=== PATIENT | female | born 1995 | race Caucasian/White ===

== ENCOUNTER 2023-07-09 05:28 | Observation (INO) ==
--- NOTE | 2023-06-28 11:28 | Anesthesiology Consultation ---
Date of Service June 28, 2023 Assessment & Plan (1) Encounter for pre-operative examination: - Check test AM DOS - Infectious disease screening: Per assessment on 06/28/23: No known infectious disease contacts or current infectious disease symptoms. No noted recent Covid positive test result. Chart Review Chart Review: Acceptable Risk for Surgery and Patient NOT seen in Pre Admission Testing History Surgery Operation Date: 07/09/23 07:15 Proposed Procedures p Lefort I wtih Graft, Sagittal Osteotomy, Surgical Splint - Rio Dunn DMD Height/Weight Height: 5 ft 4 in Weight: 47.627 kg Allergies Allergy/AdvReac Type Severity Reaction Status Date / Time amoxicillin Allergy Unknown hives Verified 06/28/23 10:50 Medications Home Medications Medication Instructions Recorded Confirmed Last Taken dextroamphetamine-amphetamine ER 30 mg PO QAM 11/26/20 06/28/23 07/16/21 25 mg 24hr capsule,extend release (Adderall XR) cetirizine 10 mg capsule (Zyrtec) 10 mg PO DAILY PRN ALLERGIES 07/12/21 06/28/23 07/15/21 levonorgestrel 14 mcg/24 hrs (3 14 mcg intrauterine UD 03/15/22 06/28/23 Unknown yrs) 13.5 mg intrauterine device (Trinh) citalopram 10 mg tablet 10 mg PO QAM 06/28/23 06/28/23 Unknown Past Medical History Medical History ADHD Anxiety History of COVID-19 2021, mild symptoms IUD (intrauterine device) in place Trinh 02/2022 Premenstrual dysphoric disorder Seasonal allergies Past Family History Family History Grandfather (Maternal) No problems noted. Grandfather (Paternal) Diabetes Colorectal cancer Grandmother (Maternal) Heart disease Father Hypertension Denies family history of Ovarian cancer Breast cancer Uterine cancer Past Surgical History Surgical History History of endoscopy History of wisdom tooth extraction (~2012) Hx of oral surgery (07/18/21) Lefort 1 Two Segments - Rio Dunn DMD 07/18/2021 Social History Smoking Status: Never smoker Do You Dip or Chew Tobacco: No Hx Alcohol Use: Yes Alcohol type: wine alcohol intake frequency: a few times a week Hx Substance Use: No substance use type: does not use
[2023-07-09] MEDS: LR 60ML/HR IV SCH (06:00)
[2023-07-09] MEDS: LR 15ML/HR IV SCH (06:00)
[2023-07-09] MEDS ORDERED: ePHEDrine sulfate 50 MG/ML AMP IV PRN (06:34)
[2023-07-09] MEDS ORDERED: HYDROmorphone INJ 1 MG/ML SYRINGE IV PRN (06:34)
[2023-07-09] MEDS ORDERED: ONDANSETRON INJ 2 MG/ML 2 ML VIAL IV PRN (06:34)
[2023-07-09] MEDS ORDERED: LIDOCAINE 2% JELLY 5 ML TUBE EXT ONE (06:34)
[2023-07-09] MEDS ORDERED: fentaNYL citrate PF 100 MCG/2 ML VIAL IV PRN (06:34)
[2023-07-09] MEDS ORDERED: ATROPINE SULFATE 0.1 MG/ML 10ML SYR IV PRN (06:34)
[2023-07-09] MEDS ORDERED: PROMETHAZINE HCL 6.25 MG in SODIUM CHLORIDE 0.9% 50 ML IV PRN (06:34)
[2023-07-09] MEDS ORDERED: SCOPOLAMINE 1 MG TDSY TD ONE (06:37)
[2023-07-09] MEDS: SCOPOLAMINE 1 MG TDSY TD ONE (06:39)
--- NOTE | 2023-07-09 06:46 | History & Physical Bridge Note ---
Date of Service July 09, 2023 History & Physical Bridge Note I have examined the patient, reviewed the History & Physical and in the interval since the performance of the History & Physical I have noted the following changes of clinical significance: no changes noted OK for the planned procedure All questions fully answered
[2023-07-09] MEDS ORDERED: DEXAMETHASONE SOD INJ 4 MG/ML VIAL ONE (06:50)
[2023-07-09] MEDS ORDERED: MIDAZOLAM HCL 1 MG/ML 2ML VIAL ONE (06:50)
[2023-07-09] MEDS ORDERED: PROPOFOL IV EMULSION 10 MG/ML 20 ML VIAL IV ONE (06:50)
[2023-07-09] MEDS ORDERED: ROCURONIUM BROMIDE 10 MG/ML 5 ML VIAL IV ONE ×2 (06:50→08:05)
[2023-07-09] MEDS ORDERED: fentaNYL citrate PF 100 MCG/2 ML VIAL ONE ×2 (06:50→13:39)
[2023-07-09] MEDS ORDERED: ONDANSETRON INJ 2 MG/ML 2 ML VIAL ONE ×2 (06:50→07:47)
[2023-07-09] MEDS ORDERED: GLYCOPYRROLATE 0.2 MG/ML VIAL ONE (06:51)
[2023-07-09] MEDS ORDERED: SUGAMMADEX SODIUM 200 MG/2 ML VIAL IV ONE (06:51)
[2023-07-09] MEDS ORDERED: HYDROmorphone INJ 2 MG/ML SYR/VIAL ONE (06:51)
[2023-07-09] MEDS ORDERED: ACETAMINOPHEN 1000 MG/100 ML IV IV ONE (06:53)
[2023-07-09] MEDS ORDERED: DexMEDEtomidine HCL IV 100 MCG/ML VIAL IV ONE (06:54)
[2023-07-09] MEDS: CLINDA 900 MG **Premixed Bag IV SCH (07:30)
[2023-07-09] MEDS: PHENYLEPHRINE 1% NA SPR 15 ML BTL ONE (07:30)
[2023-07-09] MEDS: CHLORHEXIDINE GLUCONATE 0.12% 480 ML MT ONE (08:01)
[2023-07-09] MEDS: BUPIVACAINE/EPINEPHRINE 0.5% 1:200,000 1.8 ML CARP ONE ×2 (08:02→08:03)
[2023-07-09] MEDS ORDERED: PROMETHAZINE HCL INJ 25 MG/ML 1 ML VIAL ONE (12:56)
[2023-07-09] MEDS: FLOSEAL HEMOSTATIC MATRIX 5ML TOP ONE (13:08)
[2023-07-09] MEDS: TRIAMCINOLONE ACET 0.1% OINT 15 GM TUBE ONE (13:09)
[2023-07-09] MEDS ORDERED: HYDROcodone/APAP 7.5/325mg/15mL ELIX 15 ML/CUP PO PRN (13:55)
[2023-07-09] MEDS ORDERED: MoRPHine SULFATE 4 MG/ML 1 ML CARP\\VIAL IV PRN (13:55)
[2023-07-09] MEDS ORDERED: ACETAMINOPHEN SUSP 325 MG/10.15 ML UDC PO PRN (13:55)
--- NOTE | 2023-07-09 14:04 | Anesthesiology Progress Note ---
Date of Service July 09, 2023 Anesthesia Post Procedure Vital Signs Vital Signs: Temp Pulse Resp BP Pulse Ox O2 Del Method O2 Flow Rate 07/09/23 13:56 140 H 18 114/75 97 Oxymask 4 07/09/23 13:46 36.9 C 138 H 13 100/61 95 Room Air 07/09/23 05:49 36.5 C 102 H 18 111/80 99 Room Air Transfer of Care Handoff Completed per policy Notes Mental Status: alert / awake / arousable Patient Amnestic to Procedure: Yes Nausea / Vomiting: adequately controlled Pain: adequately controlled Airway Patency, RR, SpO2: stable & adequate BP & HR: stable & adequate Hydration State: stable & adequate Anesthetic Complications: no major complications apparent
--- NOTE | 2023-07-09 14:06 | Post Operative Brief Note ---
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
--- NOTE | 2023-07-09 15:01 | XRay Report ---
XR mandible <4V CLINICAL HISTORY: Status Post-Op Surgery AP Mandibular and Jaw View COMPARISON: Facial bone CT June 07, 2023. FINDINGS: Postoperative radiographs demonstrate bilateral sacral osteotomies and LeFort advancement. Hardware is intact. No unexpected radiopaque foreign bodies are present. IMPRESSION: Postoperative radiographs demonstrate bilateral sagittal osteotomies and LeFort advanceme nt. ACT 112: Negative or not required by law. Electronically signed by: Gagan Kincaid M.D. 07/09/2023 2:58 PM
[2023-07-09] MEDS: CLINDAMYCIN/D5W 300 MG/50 ML BAG IV SCH (16:18)
[2023-07-09] MEDS: CHECK SCOPOLAMINE PATCH PLACEMENT SCH (16:18)
[2023-07-09] MEDS: dexAMETHasone 6 MG in SYRINGE 0 ML IV SCH (16:18)
[2023-07-09] MEDS: KETOROLAC 30 MG/ML VIAL IV SCH (16:19)
[2023-07-09] MEDS: ONDANSETRON INJ 2 MG/ML 2 ML VIAL IV PRN (16:19)
[2023-07-09] MEDS: D5W AND 1/2NSS + 20MEQ KCL 20 MEQ/1,000 ML BAG IV SCH (16:55)
[2023-07-09] MEDS: HYDROcodone/APAP 7.5/325mg/15mL ELIX 15 ML/CUP PO PRN (19:30)
[2023-07-09] MEDS: CHLORHEXIDINE GLUCONATE 0.12% 480 ML MT SCH (21:43)
[2023-07-09] MEDS: OXYMETAZOLINE 0.05% 30 ML BTL PRN (22:34)
[2023-07-10 07:15] LABS: Hematocrit (blood only) 23.9 % (37.0-47.0); Mean Corpuscular Hemoglobin 30.4 pg (25.0-34.0); Mean Corpuscular Hgb Conc 33.5 g/dL (32.0-36.0); Mean Corpuscular Volume 90.9 fL (80.0-100.0); Mean Platelet Volume 9.5 fL (9.4-12.4); Platelet Count 224 K/uL (130-400); RDW Coefficient of Variation 12.3 % (11.5-14.5); RDW Standard Deviation 40.6 fL (36.4-46.3); Red Blood Count 2.63 M/uL (4.20-5.40); White Blood Count 17.41 K/ul (4.8-10.8)
[2023-07-10 07:43] LABS: Basophils # (auto) 0.03 K/uL (0.00-0.20); Basophils % (auto) 0.2 %; Immature Granulocytes % (auto) 0.6 %; Lymphocytes # (auto) 0.45 K/uL (1.20-3.40); Lymphocytes % (auto) 2.6 %; Monocytes # (auto) 0.52 K/uL (0.11-0.59); Neutrophils # (auto) 16.31 K/uL (1.40-6.50); Neutrophils % (auto) 93.6 %
[2023-07-10] MEDS: MoRPHine SULFATE 2 MG/ML CARP IV PRN (10:52)
--- NOTE | 2023-07-10 13:38 | Oral/Maxillofacial Progress Nt ---
Date of Service July 10, 2023 Assessment & Plan Admission and Anticipated Discharge Date Admission Date: July 09, 2023 Subjective Orthognathic surgery post op note at 24 hours Excellent result, ROM improving Sutures in place Tissue tone, gingival tissue--excellent Occlusion very stable with a reproducible bite. Post op X Rays look great Paraesthesia as expected all post op instruction reviewed Reviewed use of functional elastics No nasal congestion or bleeding, septum well positioned. No sinus issues Facial alignment excellent Reviewed post op care--diet, oral care, use of elastics, activities. Next appointment set up for: SundayJULY 19 AT 10:15 AM Overall excellent result from recent OG surgery Results & Data Vital Signs (Past 12 Hours) Vital Signs Temp Pulse Pulse Resp BP Pulse Ox O2 Del Method 07/10/23 11:00 36.6 C 86 18 136/74 100 Room Air 07/10/23 08:01 112 H 07/10/23 07:00 36.4 C L 106 H 16 125/80 98 Room Air 07/10/23 03:24 37.3 C 108 H 18 116/72 98 Room Air PG Care Time/CCT Total # of Minutes Spent Total Time Spent with Patient: Total time spent is greater than 50% in coordination of care (as documented) at patient's floor/unit and/or counseling patient: Coding Level of Care Code None
--- NOTE | 2023-07-10 13:59 | Discharge Summary ---
Date of Service July 10, 2023 Admission HPI Per Admitting Provider Discharge and Orthognathic surgery post op note at 24 hours Ricardo had a long involved surgical procedure yesterday and I kept her in PCU overnight given the length of the case and blood loss. Over night Ricardo did very well once the anesthesia effect dissipated. She had a good night with some nasal oozing as expected. Her bite is stable Taking fluids very well Pain controlled Swelling and ecchymosis as expected. OK for discharge today Post op on 07-19-23 at 10:15 am Excellent result, ROM improving Sutures in place Tissue tone, gingival tissue--excellent Occlusion very stable with a reproducible bite. Reviewed use of functional elastics Orthodontic followup pending No nasal congestion or bleeding, septum well positioned. No sinus issues Facial alignment excellent Reviewed post op care--diet, oral care, use of elastics, activities. Next appointment set up for:JUL 19 at 10:15 Overall excellent result from recent OG surgery OK for discharge Discharge Data Procedures Performed Operation Date: 07/09/23 07:00 Actual Procedures p Lefort I Plus Sagittal Osteotomy of Upper and Lower Jaw, Surgical Splint(Bilateral) - Rio Dunn DMD Coding Level of Care Code 06144 IN/OBS DISCH 30 MIN/LESS
--- NOTE | 2023-07-21 12:54 | Operative Report ---
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, Mandibular Hypoplasia I identified the patient and participated in the time-out.: Yes Procedure Operation Date: 07/09/23 07:00 Actual Procedures p Lefort I Plus Sagittal Osteotomy of Upper and Lower Jaw, Surgical Splint(Bilateral) - Rio Dunn DMD Surgeon Rio Dunn DMD Poultry Processor none Estimated Blood Loss 700 Findings Consistent with Post-Op Diagnosis Specimens none Drains none Anesthesia Type General Complications none Indications severe dentofacial deformity Description of Procedure Pre-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 After adequate anesthesia was obtained, the patient was prepped and draped in the usual manner for a mandibularsagittal osteotomy and LeFort I advancement. The patient had a class II occlusion with deviation to the right and maxillary/mandible retrognathism as well as Vertical excess with canting and open bite This was a complex deformity in 3 D Atime out was taken for patient ID, antibiotics, equipment and position verification once all agreed the procedure began. After the facial area was draped with the appropriate sterile technique, local anesthesia was infiltrated into themandibular maxillarytissues to allow for hemostasis with local anesthetic effect. After an adequate period of time to allow for the hemostasis and local anesthetic effect, an oropharyngeal throat pack was placed, the oral cavity was irrigated and suctioned dried with Peridex mouth rinse. At this time, the appropriate time outs to verify the patient, position, type of surgery,antibiotics and equipment once everyone agreed we then started the operative procedure. Since that was a double jaw procedure the plan was to start with the lower jaw but not complete the cuts then complete the upper and then return to the lower for the completion of the bilateral sagittal splints. Right side sagittal split phase I Using an electrocautery instrument, an incision approximately 1.5 cm in length was made in the external oblique region on theright side. The tissue was reflected to expose the bone. Once the bone was reflected; I had good visualization of the inferior border of the mandible, the angle of the mandible, the lingual aspect of the mandible and the nerve as it entered the mandibular foramen. Now with a fiberoptic retractor I was able to hold the lingual tissue out of the way and had good visualization of the lingual cortical plate and the nerve entrance into the bone. With the large round diego, I was able to remove the spinous processes of the external oblique ridge. Now using a reciprocating saw, an osteotomy was made parallel to the occlusion plane of the mandibular molar teeth approximately 1-2 mm above the nerve. I then used the spear point Clark diego very carefully to make a trough in the external oblique ridge from the previously made osteotomy to an area between the 1st and 2nd molars. I now continued the osteotomy parallel to the long axis of the lower molarsinferiorly to the inferior border of the mandible, taking great care to avoid any trauma to the neurovascular bundle and to ensure that I cut through the cortical plate into the marrow vascular channel. The area was packed and the left side was now addressed. Left side sagittal split phase I Using an electrocautery instrument, an incision approximately 1.5 cm in length was made in the external oblique region on the left side. The tissue was reflected to expose the bone. Once the bone was reflected; I had good visualization of the inferior border of the mandible, the angle of the mandible, the lingual aspect of the mandible and the nerve as it entered the mandibular foramen. Now with a fiberoptic retractor I was able to hold the lingual tissue out of the way and had good visualization of the lingual cortical plate and the nerve entrance into the bone. With the large round diego, I was able to remove the spinous processes of the external oblique ridge. Now using a reciprocating saw, an osteotomy was made parallel to the occlusion plane of the mandibular molar teeth approximately 1-2 mm above the nerve. I then used the spear point Clark diego very carefully to make a trough in the external oblique ridge from the previously made osteotomy to an area between the 1st and 2nd molars. I now continued the osteotomy parallel to the long axis of the lower molarsinferiorly to the inferior border of the mandible, taking great care to avoid any trauma to the neurovascular bundle and to ensure that I cut through the cortical plate into the marrow vascular channel.The area was packed and I now turned my attention to the maxilla. The bone was thin and dense with a limited marrow space as complained to the right side. LeFort I osteotomy: I turned my attention now to the maxilla. On the preoperative evaluation, the maxilla needed to be advanced5 mm with a slight rotation to line up the mid lines. To accomplish this, a Le Fort I maxillary osteotomy was carried out. An electrocautery instrument was used to make an incision from the 1st bicuspid area on the right side across the midline to the opposite bicuspid area. The tissues reflected in the usual manner to expose the mucoperiosteal tissue and to get good exposure of the anterior nasal spine, the roots of the maxillary anterior and posterior teeth and the piriform rim. Once this was reflected, I was able to then reflect posteriorly to get good access to the pterygoid plate areas. I then spent a lot of time dissecting around the nasal bones to ensure that we had good visualization of the floor of the nose and the piriform rims. At this time,the custom surgical guides were placed with an excellent fit. They were secured with small fixation screw, I ensured that the cuts will be made to avoid any anatomic structures.Before starting the bone cuts since the bone plates were also custom made I pre-drilled the holes to be used later in the fixation process. At this time, a retractor was placed intranasally and I made an osteotomy parallel to the occlusal plane from the piriform rim posteriorly to the tuberosity region. I then completed a similar osteotomy on the left side of the maxilla. Once this was done, a curved osteotome was used to osteotomize the pterygoid plate from the tuberosity region of both right and left sides. A ball curved osteotome was used to osteotomize the medial gonzalez of the maxillary sinus. I now used a straight osteotome with a protective edge to osteotomize the nasal septal tissue. I now removed the surgical guides.Once this was done, I was able to reflect all the nasal mucoperiosteal tissue of the floor of the nose. By doing this, the maxilla was quite easily downfractured. The downfracture occurred without any problems.I was able to preserve then neurovascular bundle posteriorly on the right side and left side .With great deal of blunt and sharp dissection as well as removing a lot of bony interferences, I was able to make the maxilla very passive. The maxilla was repositioned and leveled as per the surgical plan. I then irrigated the maxillary sinuses of any debris and/or polyps that were noted. Hemostasis was in good control. I made sure that the maxilla was quite passive. The preformed surgical appliance, the interim splint was applied to the mandible and the maxilla was easily seated into the split and the maxillary mandibular complex was then rotated superiorly. I noted that the maxilla was now positioned in its new position The hemostasis was in control and all bony margins were passive. At this time, the maxillary mandibular complex was superiorly repositioned. Great care was taken to make sure that the condyles were well seated within the glenoid fossa. Being satisfied with this,I placed the preformed custom titanium fixation plates. The plates were passive and lined up with the previously made holes, I then used a titanium screw and obtained direct fixation. Once this was accomplished, I now removed the fixation wires and the intermediate splint.I noted that the maxilla was extremely stable and the occlusion was reproducible.The maxilla was now stable and in ideal post surgical position. As a result of the gaps and 3-D movement I needed to bone graft the maxilla with an alloplastic sponge like bone graft material. I carefully fitted the bone grafts into the right/left lateral and posterior gaps and wedged them into place--they were stable and well positioned. I turned my attention to the mandible to complete the osteotomies. Splitting right side With the use of a bone bead machine operator and a small osteotome, I was able to complete the sagittal split of the right mandibular dev Great care was taken to avoid any trauma to the neurovascular bundle. The nerve was not traumatized and was in excellent position. I did a lot of bone reduction to allow for the mandible to be passively positioned without any pressure on the nerve or pressure that could cause distortion of the mandibular condyle. Hemostasis was in excellent control. It was noted that there were few small bony interferences that trimmed with the use of rongeurs and rotary instrument. Once this was accomplished I packed the side with a gauze sponge to prevent any pressure on the nerve and to control bleeding. At this time, I turned my attention to the left side. Splitting left side With the use of a bone bead machine operator and a small osteotome, I was able to complete the sagittal split of the left mandibular ramus. Great care was taken to avoid any trauma to the neurovascular bundle as a had to mobilize the nerve to free it as it was adherent to the to the condyle section of the bone (proximal) The left side was thinner and had a limited marrow space.I did a lot of bone reduction to allow for the mandible to be passively positioned without any pressure on the nerve or pressure that could cause distortion of the mandibular condyle. Hemostasis was in excellent control. It was noted that there were few small bony interferences that trimmed with the use of rongeurs and rotary instrument. Once this was accomplished I packed the side with a gauze sponge to prevent any pressure on the nerve and to control bleeding. Establishing the occlusion Because of the large lateral movement a lot more bone adjustment was needed to gain passive segment relationship. Once the right and left sides were completely cut and the soft tissue was reflected to allow repositioning the final occlusal splint was applied to the mandible and the mandibular complex with the splint was easily rotated and held into position and stabilized with 25 gauge stainless steel wires to the maxilla. Once both sides were split and the segments were layingpassively over each other, the osteotomy site was then trimmed to ensure that there were no bony interferences. I irrigated the areas with normal saline, I made sure that the neurovascular bundles were intact and positioned correctly and that hemostasis was in excellent control. There was more oozing on the left side which required Surgi Ange and pressure. Applying Direct osseous fixation Right side--I used a small clasp, placed between the two fragments and noted that the fragments were seating extremely passively over each other. I did some further trimming to ensure that there was no pressure on the nerve and to ensure that the condyle waswell seated. Being satisfied with this, I passed an 11 blade through the cheek, a trocar was placed and then interosseous holes were placed above the neurovascular bundle, but below the external oblique ridge for direct osseous fixation of the right mandibular fragment. Given that there was almost a 12 mm advancement on this side a trimmed the alloplastic bone graft sponge and wedged it into the defect from the advanced segments to help with bone healing and stability. Now direct osseous fixation of the right mandibular fragment was completed. Left side--I used a small clasp, placed between the two fragments and noted that the fragments were seating extremely passively over each other. I did some further trimming to ensure that there was no pressure on the nerve and to ensure that the condyle waswell seated. Being satisfied with this, I passed an 11 bladethrough the cheek, a trocar was placed and then 3 interosseous holes were placed above the neurovascular bundle I now checked both osteotomy sites and found them to be extremely stable. At this time, the temporary intermaxillary fixation was removed. The occlusion was extremely stable and reproducible. The patient had a good range of motion without clicks or pops or deviations. The sites were irrigated and checked for bleeding. I inspected the lingual aspects to make sure that the screws did not perforate the lingual cortical plate--were necessary the screws were adjusted to insure a flush fit. Closure lower I turned my attention first to the right side; with the use of a 4-0 Vicryl suture, I was able to suture the osteotomy site. Once this was accomplished, we turned our attention to the left side and a similar suturing technique was carried out. Using a 6-0 nylon suture 2 skin sutures in each cheek site was used to close the skin. I noted that ther ewas more bleeding on the left side--I reopened the site irrigated and found some small bleeders and used electrosurg to control the bleeding and then resutured the left side again. Closure upper The nasal septum was trimmed to help prevent buckling--the septum to the new midline. Before closure of the upper the area was irrigated, hemostasis was controlled. To ensure proper closure with good anatomical form, I was able to grasp the alar cartilages on both the right and left side and then using a 3-0 Mersilene suture, I was able to perform an alar cinch technique to ensure good positioning of the lateral alar cartilages of the nose and to establish good base anatomy of the nose. Once this was done, I made sure that the nasal septum was well positioned in the midline. Being satisfied with this, I then began the V-Y closure of the mucosal tissue starting in the midline and then closed laterally on either side to ensure an even contouring of the tissue. When all was said and done, we had excellent closure of the soft tissue with great support of the nose. 2 dental elastics were applied in the cupid areas to allow for functional elastic stability. I now placed an elastic face bandage to maintain pressure to the face Recovery The patient was allowed to recover in the usual manner. A check to insure all instrument and sponge count was correct was accomplished and verified the oral cavity was suctioned and Ipassed an oral gastric tube. When fully recovered, extubation occurred. All vital signs were extremely stable. Now the anesthesia department transferred the patient to the hospital litter to be taken to the recovery room. I am very pleased with the osteotomy sites, the positioning of the nerve, and the functional improvement that was gained by the osteotomy. ESTIMATED TIME OF OPERATION: Approximately 6.5 hours I attest to the content of the Intraoperative Record and any orders documented therein. Any exceptions are noted below.
== END 2023-07-10 15:39 | disposition home or self-care (01) ==
LOC: ASU 05:28 → 2S 05:28